=== PATIENT | female | born 1950 | race Caucasian/White ===

== ENCOUNTER → 2017-02-22 | Outpatient (RCR) | payer MEDICARE | LOC: M ST 10:44 | PROVIDERS: ATTEND Nurse Practitioner Adult Health | DX: Z51.89 Encounter for other specified aftercare (principal); R47.1 Dysarthria and anarthria | CPT/HCPCS: 92522; G8999; G9158; G9186 ==

== ENCOUNTER → 2018-01-24 | Outpatient (REF) | payer MEDICARE | LOC: M LAB REF 10:59 | DX: R19.7 Diarrhea, unspecified (principal) | CPT/HCPCS: 83630 ==

== ENCOUNTER 2018-02-28 07:40 | Day surgery (SDC) | payer MEDICARE ==
[~2018-02-28] VITALS: Ht 175.3 cm; Wt 78.0 kg
[~2018-02-28 07:40] MED LIST: DIPH2.5T14 PO; MULT1TAB10 PO; VITA100067 PO
[2018-02-28] MEDS ORDERED: NS 1,000 ML IV ONE (08:00)
[2018-02-28] MEDS ORDERED: PROPOFOL 200 MG/20 ML VIAL As Ordered ONE ×2 (08:28→08:38)
--- NOTE | 2018-02-28 08:56 | ROOR ---
Patient Name: [place] Procedure Date: 02/28/2018 8:27 AM Date of : 1950 Age: 67 Room: [facility] Gender: Female Note Status: Finalized Procedure: Colonoscopy Indications: Chronic diarrhea, Follow-up of microscopic colitis Providers: Wilmer KAUR MD Referring MD: Rosa M Li NP Requesting Provider: Medicines: Monitored Anesthesia Care Complications: No immediate complications. Procedure: Pre-Anesthesia Assessment: - The heart rate, respiratory rate, oxygen saturations, blood pressure, adequacy of pulmonary ventilation, and response to care were monitored throughout the procedure. The Colonoscope was introduced through the anus and advanced to 10 cm into the ileum. The colonoscopy was performed without difficulty. The patient tolerated the procedure well. The quality of the bowel preparation was good. Findings: The perianal and digital rectal examinations were normal. Two sessile polyps were found in the ascending colon. The polyps were diminutive in size. These polyps were removed with a jumbo cold forceps. Resection and retrieval were complete. Mild sigmoid diverticulosis and small internal hemorrhoids. The exam was otherwise without abnormality on direct and retroflexion views. Biopsies for histology were taken with a cold forceps for evaluation of microscopic colitis. Impression: - Two diminutive polyps in the ascending colon, removed with a jumbo cold forceps. Resected and retrieved. - Mild sigmoid diverticulosis and small internal hemorrhoids. - The colon and terminal ileum examinations are otherwise normal on direct and retroflexion views. - Biopsies were taken with a cold forceps for evaluation of microscopic colitis. Recommendation: - Continue present medications. - Imodium 2 tablets 2-3 times a day. - Telephone endoscopist for pathology results in 2 weeks. - If the pathology report reveals adenomatous tissue, then repeat the colonoscopy in 5 years. Wilmer Kaur MD Wilmer KAUR MD 02/28/2018 8:55:40 AM This report has been signed electronically. Number of Addenda: 0 Note Initiated On: 02/28/2018 8:27 AM Estimated Blood Loss: Estimated blood loss: none.
[2018-02-28 09:15] VITALS: BP 147/77
== END 2018-02-28 09:17 | disposition home or self-care (01) ==
LOC: M OPP 07:40
PROVIDERS: ATTEND Internal Medicine Gastroenterology
DX: R19.7 Diarrhea, unspecified (principal); D12.2 Benign neoplasm of ascending colon; K57.30 Diverticulosis of large intestine without perforation or abscess without bleeding; K64.8 Other hemorrhoids; K52.9 Noninfective gastroenteritis and colitis, unspecified

== ENCOUNTER → 2018-08-27 | Outpatient (CLI) | payer MEDICARE ==
[2018-08-27 09:10] LABS: BASO % 0.6 % (0.0-1.0); EOS # 0.1 10^3/uL (0.0-0.50); EOS % 1.3 % (0.0-3.0); HEMATOCRIT 43.2 % (36.0-47.0); HEMOGLOBIN 14.7 g/dl (12.0-15.5); LYMPH # 1.2 10^3/uL (1.5-4.5); LYMPH % 24.7 % (24.0-44.0); MEAN CORPUSCULAR VOLUME 94.1 fl (80.0-96.0); MONO # 0.3 10^3/uL (0.0-0.8); NEUTROPHILS # 3.1 10^3/uL (1.8-7.7); NEUTROPHILS % 66.2 % (36.0-66.0); PLATELET COUNT, AUTOMATED 144 10^3/uL (150-450); RED BLOOD COUNT 4.59 10^6/uL (4.00-5.40); WHITE BLOOD COUNT 4.7 10^3/uL (4.0-10.0)
[2018-08-27 10:36] LABS: ERYTHROCYTE SEDIMENTATION RATE 9 mm/hr (0-30)
[2018-08-27 10:42] LABS: ALT/SGPT 35 U/L (12-78); BILIRUBIN,TOTAL 0.7 MG/DL (0.2-1.0); BLOOD UREA NITROGEN 9 MG/DL (7-18); C REACTIVE PROTEIN QUANTITATIV 0.39 MG/DL (0.00-0.30); CALCIUM LEVEL 8.8 MG/DL (8.8-10.2); CARBON DIOXIDE LEVEL 24 MEQ/L (21-32); CHLORIDE LEVEL 105 MEQ/L (98-107); CREATININE FOR GFR 0.55 MG/DL (0.55-1.30); FREE T4 0.95 NG/DL (0.76-1.46); GLOMERULAR FILTRATION RATE > 60.0 (>45); GLUCOSE, FASTING 68 MG/DL (70-100); POTASSIUM SERUM 4.3 MEQ/L (3.5-5.1); SODIUM LEVEL 143 MEQ/L (136-145); TOTAL 25(OH) VITAMIN D 24.7 NG/ML (30.0-100.0); TOTAL PROTEIN 7.3 GM/DL (6.4-8.2); VITAMIN B12 LEVEL 333 PG/ML
[2018-08-29 00:08] LABS: ANA (HEP2) Positive (.); Lyme Disease IgG Ab 18 kDa Ban Absent (.); Lyme Disease IgG Ab 23 kDa Ban Absent (.); Lyme Disease IgG Ab 28 kDa Ban Absent (.); Lyme Disease IgG Ab 30 kDa Ban Absent (.); Lyme Disease IgG Ab 39 kDa Ban Absent (.); Lyme Disease IgG Ab 41 kDa Ban Absent (.); Lyme Disease IgG Ab 45 kDa Ban Absent (.); Lyme Disease IgG Ab 58 kDa Ban Absent (.); Lyme Disease IgG Ab 66 kDa Ban Absent (.); Lyme Disease IgG Ab 93 kDa Ban Absent (.); Lyme Disease IgG West Blot Int Negative (.); Lyme Disease IgG/IgM Antibodie <0.91 ISR (0.00-0.90); Lyme Disease IgM Ab 23 kDa Ban Absent (.); Lyme Disease IgM Ab 39 kDa Ban Absent (.); Lyme Disease IgM Ab 41 kDa Ban Absent (.); Lyme Disease IgM Ab Quantitati 0.98 index (0.00-0.79); Lyme Disease IgM West Blot Int Negative (.)
== END ==
LOC: M LAB 08:01
PROVIDERS: ATTEND Physician Assistant
DX: K52.839 Microscopic colitis, unspecified (principal); S20.96XA Insect bite (nonvenomous) of unspecified parts of thorax, initial encounter; W57.XXXA Bitten or stung by nonvenomous insect and other nonvenomous arthropods, initial encounter; Y92.89 Other specified places as the place of occurrence of the external cause; G25.2 Other specified forms of tremor

== ENCOUNTER → 2018-09-19 | Outpatient (REF) | payer MEDICARE ==
[2018-09-19 13:43] LABS: HEMOGLOBIN A1c 5.4 %
[2018-09-19 14:00] LABS: FOLATE 10.8 NG/ML; FREE T4 0.84 NG/DL (0.76-1.46); RHEUMATOID FACTOR QUANT 16.3 IU/ML (<15.0); TOTAL PROTEIN 6.9 GM/DL (6.4-8.2); VITAMIN B12 LEVEL 304 PG/ML
[2018-09-23 00:07] LABS: ANTINUCLEAR ANTIBODIES DIRECT Negative (Negative); VITAMIN B1 LEVEL WHOLE BLOOD 93.4 nmol/L (66.5-200.0); VITAMIN B6,PYRIDOXAL PHOSPHATE 7.6 ug/L (2.0-32.8); VITAMIN E(ALPHA TOCOPHEROL) 11.8 mg/L (9.0-29.0); VITAMIN E(GAMMA TOCOPHEROL) 0.6 mg/L (0.5-4.9)
[2018-09-24 14:21] LABS: ALBUMIN 4.24 GM/DL (3.29-5.55); ALBUMIN % 61.4 % (55.8-66.1); ALPHA-1-GLOBULIN % 4.3 % (2.9-4.9); ALPHA-2-GLOBULINS 0.69 GM/DL (0.42-0.99); BETA-1-GLOBULINS % 6.3 % (4.7-7.2); BETA-2-GLOBULINS % 4.7 % (3.2-6.5); GAMMA GLOBULIN % 13.3 % (11.1-18.8)
[2018-09-24 14:22] LABS: BETA-1-GLOBULINS 0.43 GM/DL (0.28-0.60); BETA-2-GLOBULINS 0.32 GM/DL (0.19-0.55); GAMMA GLOBULINS 0.92 GM/DL (0.65-1.58)
== END ==
LOC: M LABNEURO 09:29
PROVIDERS: ATTEND Psychiatry & Neurology Neurology
DX: R25.1 Tremor, unspecified (principal); R20.2 Paresthesia of skin; E07.9 Disorder of thyroid, unspecified; E11.9 Type 2 diabetes mellitus without complications

== ENCOUNTER → 2018-12-20 | Outpatient (REF) | payer MEDICARE ==
[2018-12-24 14:59] LABS: ANA (HEP2) Negative (.); Lyme Disease IgG Ab 18 kDa Ban Present (.); Lyme Disease IgG Ab 23 kDa Ban Absent (.); Lyme Disease IgG Ab 28 kDa Ban Absent (.); Lyme Disease IgG Ab 30 kDa Ban Absent (.); Lyme Disease IgG Ab 39 kDa Ban Absent (.); Lyme Disease IgG Ab 41 kDa Ban Absent (.); Lyme Disease IgG Ab 45 kDa Ban Absent (.); Lyme Disease IgG Ab 58 kDa Ban Absent (.); Lyme Disease IgG Ab 66 kDa Ban Absent (.); Lyme Disease IgG Ab 93 kDa Ban Absent (.); Lyme Disease IgG West Blot Int Negative (.); Lyme Disease IgG/IgM Antibodie <0.91 ISR (0.00-0.90); Lyme Disease IgM Ab 23 kDa Ban Absent (.); Lyme Disease IgM Ab 39 kDa Ban Absent (.); Lyme Disease IgM Ab 41 kDa Ban Absent (.); Lyme Disease IgM Ab Quantitati 1.07 index (0.00-0.79); Lyme Disease IgM West Blot Int Negative (.)
== END ==
LOC: M LABNEURO 09:47
PROVIDERS: ATTEND Family Medicine
DX: R76.0 Raised antibody titer (principal); W57.XXXD Bitten or stung by nonvenomous insect and other nonvenomous arthropods, subsequent encounter

== ENCOUNTER → 2019-04-22 | Outpatient (REF) | payer MEDICARE ==
[2019-04-22 14:04] LABS: BASO % 0.8 % (0.0-1.0); EOS # 0.1 10^3/uL (0.0-0.5); EOS % 1.8 % (0.0-3.0); HEMATOCRIT 47.4 % (36.0-47.0); HEMOGLOBIN 15.8 g/dl (12.0-15.5); LYMPH # 1.7 10^3/uL (1.5-5.0); LYMPH % 34.1 % (24.0-44.0); MEAN CORPUSCULAR HEMOGLOBIN 31.5 pg (27.0-33.0); MEAN CORPUSCULAR HGB CONC 33.3 g/dl (32.0-36.5); MEAN CORPUSCULAR VOLUME 94.4 fl (80.0-96.0); MONO # 0.5 10^3/uL (0.0-0.8); NEUTROPHILS # 2.6 10^3/uL (1.5-8.5); NEUTROPHILS % 53.1 % (36.0-66.0); PLATELET COUNT, AUTOMATED 152 10^3/uL (150-450); RED BLOOD COUNT 5.02 10^6/uL (4.00-5.40); WHITE BLOOD COUNT 4.9 10^3/uL (4.0-10.0)
[2019-04-22 14:44] LABS: ALBUMIN 4.2 GM/DL (3.2-5.2); ALT/SGPT 32 U/L (12-78); BILIRUBIN,TOTAL 0.6 MG/DL (0.2-1.0); BLOOD UREA NITROGEN 7 MG/DL (7-18); CALCIUM LEVEL 9.6 MG/DL (8.8-10.2); CARBON DIOXIDE LEVEL 26 MEQ/L (21-32); CHLORIDE LEVEL 103 MEQ/L (98-107); CHOLESTEROL LEVEL 215 MG/DL (<200); CHOLESTEROL RISK RATIO 3.839 (<5); CREATININE FOR GFR 0.74 MG/DL (0.55-1.30); GLOMERULAR FILTRATION RATE > 60.0 (>39); GLUCOSE, FASTING 97 MG/DL (70-100); HDL CHOLESTEROL 56 MG/DL (>40); LDL CHOLESTEROL 130 MG/DL (<100); NON-HDL-C 159 MG/DL; POTASSIUM SERUM 3.6 MEQ/L (3.5-5.1); SODIUM LEVEL 138 MEQ/L (136-145); TOTAL PROTEIN 7.3 GM/DL (6.4-8.2); TRIGLYCERIDES LEVEL 144 MG/DL (<150)
== END ==
LOC: M LABNEURO 13:12
PROVIDERS: ATTEND Physician Assistant
DX: Z00.00 Encounter for general adult medical examination without abnormal findings (principal); Z13.0 Encounter for screening for diseases of the blood and blood-forming organs and certain disorders involving the immune mechanism; Z13.1 Encounter for screening for diabetes mellitus; Z13.220 Encounter for screening for lipoid disorders; E55.9 Vitamin D deficiency, unspecified; E07.9 Disorder of thyroid, unspecified; E78.00 Pure hypercholesterolemia, unspecified

== ENCOUNTER 2019-12-19 11:15 | Emergency (ER) | payer MEDICARE ==
[~2019-12-19] VITALS: Ht 177.8 cm; Wt 81.9 kg
[2019-12-19] MEDS ORDERED: LIDOCAINE 2% 5ML JELLY UROJET TOP ONE (11:45)
[2019-12-19 11:55] LABS: BASO % 0.2 % (0.0-1.0); EOS % 0.1 % (0.0-3.0); HEMATOCRIT 51.4 % (36.0-47.0); LYMPH # 1.7 10^3/uL (1.5-5.0); LYMPH % 6.8 % (24.0-44.0); MEAN CORPUSCULAR HEMOGLOBIN 31.2 pg (27.0-33.0); MEAN CORPUSCULAR HGB CONC 33.1 g/dl (32.0-36.5); MEAN CORPUSCULAR VOLUME 94.3 fl (80.0-96.0); MONO # 1.2 10^3/uL (0.0-0.8); MONO % 4.8 % (0.0-5.0); NEUTROPHILS # 21.6 10^3/uL (1.5-8.5); NEUTROPHILS % 87.1 % (36.0-66.0); PLATELET COUNT, AUTOMATED 303 10^3/uL (150-450); RED BLOOD COUNT 5.45 10^6/uL (4.00-5.40); WHITE BLOOD COUNT 24.7 10^3/uL (4.0-10.0)
[2019-12-19] MEDS ORDERED: NS 1,000 ML IV ONE ×2 (12:00→12:30)
[2019-12-19] MEDS ORDERED: ONDANSETRON 4MG/2ML VIAL As Ordered ONE (12:01)
--- NOTE | 2019-12-19 12:09 | REPVR ---
PROCEDURE INFORMATION: Exam: CT Head Without Contrast Exam date and time: 12/19/2019 11:35 AM Age: 69 years old Clinical indication: Altered mental status/memory loss; Confusion or disorientation TECHNIQUE: Imaging protocol: Computed tomography of the head without contrast. Radiation optimization: All CT scans at this facility use at least one of these dose optimization techniques: automated exposure control; mA and/or kV adjustment per patient size (includes targeted exams where dose is matched to clinical indication); or iterative reconstruction. COMPARISON: No relevant prior studies available. FINDINGS: Brain: Mild hypoattenuating foci are noted in the anterior lateral ventricular periventricular white matter bilaterally. No intracranial hemorrhage. No mass or acute cortical infarction identified. Ventricles: Prominence of the ventricular system and subarachnoid spaces is consistent with the patient's age of 69 years. No hydrocephalus or evidence of increased intracranial pressure. Bones/joints: Unremarkable. No acute fracture. Paranasal sinuses: Visualized sinuses are unremarkable. No fluid levels. Mastoid air cells: Visualized mastoid air cells are well aerated. Vasculature: Atherosclerotic calcifications are present involving the carotid artery siphons and vertebral arteries bilaterally. Soft tissues: Unremarkable. IMPRESSION: 1. Age appropriate supratentorial and infratentorial atrophy. 2. Mild chronic white matter microvascular ischemic disease. 3. No acute intracranial abnormality identified. Electronically signed by: Rafael Jarrett On 12/19/2019 12:09:27 PM
--- NOTE | 2019-12-19 12:11 | REPVR ---
PROCEDURE INFORMATION: Exam: XR Chest, 1 View Exam date and time: 12/19/2019 11:35 AM Age: 69 years old Clinical indication: Shortness of breath; Additional info: altered mental status TECHNIQUE: Imaging protocol: XR of the chest Views: Frontal portable upright view of the chest. COMPARISON: No relevant prior studies available. FINDINGS: Tubes, catheters and devices: EKG leads are present overlying the chest. Lungs: The pulmonary vasculature is congested. Left lateral basilar infiltrate. Pleural space: No definite pleural effusion. No pneumothorax. Heart/Mediastinum: Moderate cardiomegaly. Vasculature: Moderate aortic arch atherosclerotic calcification without ectasia. Bones/joints: No acute abnormality identified. IMPRESSION: 1. Pulmonary vascular congestion. 2. Left lateral basilar infiltrate. Pneumonitis is difficult to exclude. Clinical correlation is recommended. Electronically signed by: Rafael Jarrett On 12/19/2019 12:10:20 PM
[2019-12-19] MEDS ORDERED: ONDANSETRON 4MG/2ML VIAL IV ONE (12:15)
[2019-12-19] MEDS ORDERED: cefTRIAXone SOD 2 GM in D5W MINI-BAG PLUS 50 ML IV ONE (12:15)
[2019-12-19] MEDS ORDERED: DOXYCYCLINE HYCLATE 100 MG in D5W MINI-BAG PLUS 100 ML IV ONE (12:15)
[2019-12-19] MEDS ORDERED: NS 500 ML IV ONE (12:30)
[2019-12-19] MEDS ORDERED: ASPIRIN 81 MG CHEW TABLET PO ONE (12:30)
[2019-12-19 13:17] LABS: ALBUMIN 2.8 GM/DL (3.2-5.2); ALT/SGPT 20 U/L (12-78); BILIRUBIN,DIRECT 0.6 MG/DL (0.0-0.2); BILIRUBIN,TOTAL 1.4 MG/DL (0.2-1.0); BLOOD UREA NITROGEN 28 MG/DL (7-18); CALCIUM LEVEL 9.6 MG/DL (8.8-10.2); CARBON DIOXIDE LEVEL 26 MEQ/L (21-32); CHLORIDE LEVEL 103 MEQ/L (98-107); CK-MB VALUE MASS 12.8 NG/ML (<3.6); CPK CREATINE PHOSPHOKINASE 97 U/L (26-192); CREATININE FOR GFR 0.94 MG/DL (0.55-1.30); GLOMERULAR FILTRATION RATE > 60.0 (>39); GLUCOSE, FASTING 133 MG/DL (70-100); POTASSIUM SERUM 3.5 MEQ/L (3.5-5.1); SODIUM LEVEL 140 MEQ/L (136-145); TOTAL PROTEIN 6.5 GM/DL (6.4-8.2); TROPONIN I 5.16 NG/ML (< 0.10)
[2019-12-19] MEDS ORDERED: HEPARIN DRIP 25,000 UNITS in IV 1 EA IV SCH (13:32)
[2019-12-19] MEDS ORDERED: HEPARIN SOD (PORCINE) 5000UNITS/ML 1ML VIAL/SYRINGE IV ONE (13:45)
[2019-12-19 14:45] VITALS: BP 91/60
[2019-12-19 15:11] LABS: INR 1.06; PROTHROMBIN TIME 14.1 SECONDS (12.5-14.3)
[2019-12-19 15:12] LABS: PARTIAL THROMBOPLASTIN TIME 29.4 SECONDS (24.2-38.5)
--- NOTE | 2019-12-19 18:09 | ECGEPIP ---
[facility] - ED Test Date: 2019-12-19 Pat Name: JOCELYN PERRY Department: Room: - Gender: Female Patient Assistant: eduarda : 1950 Requested By: Kim Robledo Order Number: [id number] Reading MD: Wilmer Stanley Measurements Intervals [place] Rate: 103 P: 60 TN: 149 QRS: -80 QRSD: 158 T: 60 QT: 379 QTc: 497 Interpretive Statements SINUS TACHYCARDIA INDETERMINATE AXIS RIGHT BUNDLE BRANCH BLOCK ANTEROSEPTAL MYOCARDIAL INFARCTION, POSSIBLY ACUTE Elevated St segments in v2 and v3 suggests acute VA Prolonged QTc interval Wavy baseline Comparison tracing not on file Electronically Signed on 12-19-2019 18:09:20 EDT by Wilmer Stanley
== END 2019-12-19 15:05 | disposition short-term general hospital (02) ==
LOC: M ED 11:15 → EDBD 11:15 → M ED 15:05
DX: I21.3 ST elevation (STEMI) myocardial infarction of unspecified site (principal); J18.9 Pneumonia, unspecified organism; R94.31 Abnormal electrocardiogram [ECG] [EKG]; Z20.828 Contact with and (suspected) exposure to other viral communicable diseases; Z88.1 Allergy status to other antibiotic agents; Z88.2 Allergy status to sulfonamides; Z79.899 Other long term (current) drug therapy
CPT/HCPCS: 36415; 51702; 70450; 71045; 80047; 80048; 80076; 81001; 82140; 82550; 82553; 83605; 84484; 85025; 85610; 85730; 87040; 93005; 93041; 94760; 96365; 96367; 96368; 96375; 99285; J0696; J1644; J2405; U0002